=== PATIENT | female | born 1970 | race Caucasian/White ===

== ENCOUNTER 2019-02-12 08:05 | Emergency (ER) | payer BC ==
[~2019-02-12] VITALS: Ht 160 cm; Wt 93.0 kg
[2019-02-12 09:04] VITALS: BP 156/92
[2019-02-12] MEDS ORDERED: ACETAMINOPHEN 500 MG TABLET PO ONE (10:00)
[2019-02-12] MEDS ORDERED: methylPREDNISolone SOD SUCC 125 MG/2 ML IV ONE (10:00)
[2019-02-12] MEDS ORDERED: PLEASE ENTER ALLERGIES MC SCH (10:00)
[2019-02-12] MEDS ORDERED: SODIUM CHLORIDE FLUSH 10ML SYR IVF ONE (10:00)
[2019-02-12] MEDS ORDERED: methylPREDNISolone SOD SUCC 125 MG/2 ML ONE (10:03)
[2019-02-12] MEDS ORDERED: ACETAMINOPHEN 500 MG TABLET ONE (10:03)
[2019-02-12 10:16] LABS: BASOPHILS # (AUTO) 0.01 x10^3/uL (0-0.1); BASOPHILS % (AUTO) 0 % (0-1); EOSINOPHILS # (AUTO) 0.01 x10^3/uL (0-0.4); EOSINOPHILS % (AUTO) 0 % (1-7); LYMPHOCYTES # (AUTO) 0.89 x10^3/uL (1-3.4); LYMPHOCYTES % (AUTO) 16 % (22-44); MD NO; MEAN CORPUSCULAR HEMOGLOBIN 29.1 pg (27.0-34.8); MEAN CORPUSCULAR HGB CONC 33.2 g/dL (32.4-35.8); MEAN CORPUSCULAR VOLUME 87.7 fL (80-100); MONOCYTES # (AUTO) 0.61 x10^3/uL (0.2-0.8); MONOCYTES % (AUTO) 11 % (2-9); NEUTROPHILS # (AUTO) 3.92 x10^3/uL (1.8-6.8); NEUTROPHILS % (AUTO) 72 % (42-75); PLATELET COUNT 313 x10^3/uL (130-400); RED BLOOD COUNT 4.78 x10^6/uL (3.82-5.3); RED CELL DISTRIBUTION WIDTH 14.8 % (9.6-15.2)
[2019-02-12] MEDS ORDERED: ALBUTEROL SULFATE 2.5 MG/3 ML ONE (10:23)
[2019-02-12 10:24] LABS: ALANINE AMINOTRANSFERASE 110 U/L (12-78); ALBUMIN 3.6 g/dL (3.4-5.0); ANION GAP 6 mmol/L (5-15); CALCIUM 8.6 mg/dL (8.5-10.1); CHLORIDE 104 mmol/L (98-107)
[2019-02-12 10:29] LABS: ALKALINE PHOSPHATASE 125 U/L (45-117); BILIRUBIN,TOTAL 0.5 mg/dL (0.2-1.0); CREATININE 0.73 mg/dL (0.55-1.02); TOTAL PROTEIN 7.3 g/dL (6.4-8.2); TROPONIN I < 0.015 ng/mL (0.000-0.045)
[2019-02-12 12:18] LABS: RAPID INFLUENZA A Negative (Negative); RAPID INFLUENZA B Negative (Negative)
== END 2019-02-12 13:39 | disposition home or self-care (01) ==
LOC: ED 11:31
DX: J44.1 Chronic obstructive pulmonary disease with (acute) exacerbation (principal); J02.8 Acute pharyngitis due to other specified organisms; B97.89 Other viral agents as the cause of diseases classified elsewhere; F17.200 Nicotine dependence, unspecified, uncomplicated; Z90.49 Acquired absence of other specified parts of digestive tract; Z90.710 Acquired absence of both cervix and uterus
CPT/HCPCS: 36415; 71045; 80053; 83880; 84484; 85025; 87400; 93005; 94640; 96374; 99284; J2930

== ENCOUNTER 2019-02-14 22:14 | Emergency (ER) | payer BC ==
[~2019-02-14] VITALS: Ht 160 cm; Wt 92.5 kg
[2019-02-14 22:17] VITALS: BP 116/71
[2019-02-14] MEDS ORDERED: ALBUTEROL/IPRATROPIUM 2.5MG/0.5MG, 3 ML ONE (22:49)
[2019-02-14] MEDS ORDERED: ALBUTEROL/IPRATROPIUM 2.5MG/0.5MG, 3 ML NPPB ONE (23:00)
== END 2019-02-14 23:51 | disposition home or self-care (01) ==
LOC: ED 23:45
DX: J44.9 Chronic obstructive pulmonary disease, unspecified (principal); F17.210 Nicotine dependence, cigarettes, uncomplicated; Z90.49 Acquired absence of other specified parts of digestive tract; Z90.710 Acquired absence of both cervix and uterus; Z98.890 Other specified postprocedural states; Z88.8 Allergy status to other drugs, medicaments and biological substances
CPT/HCPCS: 71046; 93005; 94640; 99283; J7620

== ENCOUNTER 2019-12-02 09:18 | Emergency (ER) | payer BC ==
[~2019-12-02] VITALS: Ht 160 cm; Wt 94.8 kg
[2019-12-02] MEDS ORDERED: OXYcodone/APAP 5/325MG TABLET ONE (09:59)
[2019-12-02] MEDS ORDERED: KETOROLAC 30 MG/1 ML ONE (09:59)
[2019-12-02] MEDS ORDERED: KETOROLAC 30 MG/1 ML IM ONE (10:00)
[2019-12-02] MEDS ORDERED: OXYcodone/APAP 5/325MG TABLET PO ONE (10:00)
--- NOTE | 2019-12-02 10:14 | NUR ---
PT MEDICATED PER ERP ORDER FOR 8 R BACK AND R LEG PAIN. BP CUFF AND PULSE OX IN PLACE, CALL LIGHT WITHIN REACH. US AT BS.
[2019-12-02 11:06] VITALS: BP 140/88
== END 2019-12-02 11:08 | disposition home or self-care (01) ==
LOC: ED 09:33
DX: M54.41 Lumbago with sciatica, right side (principal); R60.0 Localized edema; J44.9 Chronic obstructive pulmonary disease, unspecified
CPT/HCPCS: 93971; 96372; 99284; J1885; J7512

== ENCOUNTER 2020-07-08 01:06 | Emergency (ER) | payer BC ==
[~2020-07-08] VITALS: Ht 165.1 cm; Wt 101.7 kg
[2020-07-08 01:11] VITALS: BP 143/78
--- NOTE | 2020-07-08 01:18 | NUR ---
EKG IN TRIAGE
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
[2020-07-08] MEDS ORDERED: MAALOX/HYOSCYAMINE/LIDOCAINE 45 ML BTL PO ONE (02:00)
[2020-07-08] MEDS ORDERED: ALBUTEROL/IPRATROPIUM 2.5MG/0.5MG, 3 ML NPPB ONE (02:00)
[2020-07-08 02:10] LABS: BASOPHILS % (AUTO) 1 % (0-1); EOSINOPHILS % (AUTO) 2 % (1-7); LYMPHOCYTES % (AUTO) 37 % (22-44); MEAN CORPUSCULAR HEMOGLOBIN 28.7 pg (27.0-34.8); MEAN CORPUSCULAR HGB CONC 33.3 g/dL (32.4-35.8); MEAN PLATELET VOLUME 7.3 fL (7.4-10.4); MONOCYTES % (AUTO) 8 % (2-9); NEUTROPHILS % (AUTO) 52 % (42-75); PLATELET COUNT 375 x10^3/uL (130-400); RED BLOOD COUNT 4.54 x10^6/uL (3.82-5.3); RED CELL DISTRIBUTION WIDTH 14.3 % (9.6-15.2)
[2020-07-08] MEDS ORDERED: MAALOX/HYOSCYAMINE/LIDOCAINE 45 ML BTL ONE (02:16)
[2020-07-08] MEDS ORDERED: ALBUTEROL/IPRATROPIUM 2.5MG/0.5MG, 3 ML ONE (02:16)
[2020-07-08] MEDS ORDERED: KETOROLAC 30 MG/1 ML ONE (02:26)
[2020-07-08] MEDS ORDERED: KETOROLAC 30 MG/1 ML IM ONE (02:30)
[2020-07-08 02:36] LABS: ALANINE AMINOTRANSFERASE 30 U/L (12-78); ALBUMIN 3.2 g/dL (3.4-5.0); ANION GAP 4 mmol/L (5-15); CALCIUM 9.1 mg/dL (8.5-10.1); CHLORIDE 108 mmol/L (98-107); CREATININE 0.86 mg/dL (0.55-1.02)
[2020-07-08 02:40] LABS: ALKALINE PHOSPHATASE 84 U/L (45-117); BILIRUBIN,TOTAL 0.3 mg/dL (0.2-1.0); TOTAL PROTEIN 6.7 g/dL (6.4-8.2); TROPONIN I < 0.015 ng/mL (0.000-0.045)
--- NOTE | 2020-07-08 03:08 | NUR ---
report given to joselyn cotto
--- NOTE | 2020-07-08 03:43 | NUR ---
Waiting for xray read.
--- NOTE | 2020-07-08 03:54 | NUR ---
Pt sleeping, wakes up states feeling little better. Updated re: xray delay and POC. Pt in agreement. VSS..
== END 2020-07-08 04:46 | disposition home or self-care (01) ==
LOC: ED 01:36
DX: R06.00 Dyspnea, unspecified (principal); J98.01 Acute bronchospasm; J44.9 Chronic obstructive pulmonary disease, unspecified; Z90.49 Acquired absence of other specified parts of digestive tract
CPT/HCPCS: 36415; 71045; 80053; 84484; 85025; 93005; 94640; 96372; 99285; J1885; J7512

== ENCOUNTER 2020-07-28 09:36 | Emergency (ER) | payer BC ==
[~2020-07-28] VITALS: Ht 162.6 cm; Wt 101.5 kg
--- NOTE | 2020-07-28 09:50 | NUR ---
[facility] CALLED AND PT TO TRAUMA [address] ZUNIGA AT BEDSIDE. NEURO EXAM COMETED. NO STROKE. +BELLS PALSY PER DR ZUNIGA. PT TO ROOM 24 VIA WHEELCHAIR.
[2020-07-28 09:52] VITALS: BP 138/90
--- NOTE | 2020-07-28 09:56 | NUR ---
Pt in bed with cont spo2, bp q 30 min, side rails up x2, call light in reach.
[2020-07-28] MEDS ORDERED: ACETAMINOPHEN 325 MG TABLET PO ONE (10:00)
[2020-07-28] MEDS ORDERED: ACETAMINOPHEN 325 MG TABLET ONE (10:07)
== END 2020-07-28 10:35 | disposition home or self-care (01) ==
LOC: ED 10:05
DX: G51.0 Bell's palsy (principal); J44.9 Chronic obstructive pulmonary disease, unspecified; F17.200 Nicotine dependence, unspecified, uncomplicated; Z90.49 Acquired absence of other specified parts of digestive tract
CPT/HCPCS: 99283; J7512

== ENCOUNTER 2020-08-04 19:49 | Emergency (ER) | payer SELFPAY ==
[~2020-08-04] VITALS: Ht 160 cm; Wt 100.7 kg
[2020-08-04 19:57] VITALS: BP 178/99
--- NOTE | 2020-08-04 23:03 | NUR ---
PT CALLED FOR ROOM. NA X 1
--- NOTE | 2020-08-04 23:12 | NUR ---
NOT IN LOBBY AT THIS TIME
--- NOTE | 2020-08-04 23:29 | NUR ---
NA X 3
== END 2020-08-04 23:30 | disposition left against medical advice (07) ==
LOC: ED 20:47
DX: R51.9 Headache, unspecified (principal); G51.0 Bell's palsy
CPT/HCPCS: 99281

== ENCOUNTER 2020-08-05 11:38 | Emergency (ER) | payer SELFPAY ==
[~2020-08-05] VITALS: Ht 160 cm; Wt 101.0 kg
[2020-08-05 11:43] VITALS: BP 141/87
--- NOTE | 2020-08-05 13:02 | NUR ---
Patient discharged home with spouse. Pt understands that it willtake a few days for this medciation to kick in and follow up with her primary care right away.
== END 2020-08-05 13:04 | disposition home or self-care (01) ==
LOC: ED 12:12
DX: G51.0 Bell's palsy (principal); E11.9 Type 2 diabetes mellitus without complications; R11.0 Nausea; R51.9 Headache, unspecified
CPT/HCPCS: 99283

== ENCOUNTER 2020-09-21 09:39 | Emergency (ER) | payer SELFPAY ==
[~2020-09-21] VITALS: Ht 160 cm; Wt 92.0 kg
[2020-09-21 09:40] VITALS: BP 166/103
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
--- NOTE | 2020-09-21 10:10 | NUR ---
SANDY HERZOG AT BEDSIDE FOR EVAL.
[2020-09-21] MEDS ORDERED: KETOROLAC 30 MG/1 ML ONE (10:22)
[2020-09-21] MEDS ORDERED: ACETAMINOPHEN 500 MG TABLET ONE (10:22)
[2020-09-21] MEDS ORDERED: ACETAMINOPHEN 500 MG TABLET PO ONE (10:30)
[2020-09-21] MEDS ORDERED: KETOROLAC 30 MG/1 ML IM ONE (10:30)
--- NOTE | 2020-09-21 11:21 | NUR ---
PT CHART REVIEWED AND PLACED FOR RECHECK.
== END 2020-09-21 11:58 | disposition home or self-care (01) ==
LOC: ED 09:58
DX: S83.91XA Sprain of unspecified site of right knee, initial encounter (principal); J44.9 Chronic obstructive pulmonary disease, unspecified; X50.0XXA Overexertion from strenuous movement or load, initial encounter; Y93.89 Activity, other specified; Y99.8 Other external cause status; Y92.009 Unspecified place in unspecified non-institutional (private) residence as the place of occurrence of the external cause
CPT/HCPCS: 29505; 73564; 93971; 96372; 99284; J1885